=== PATIENT | female | born 2000 | race Caucasian/White ===

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

== ENCOUNTER 2024-02-11 17:46 | Emergency (ER) | payer OTHER ==
[2024-02-11 18:02] VITALS: BP 122/81; PULSE 89; RESP 18; TEMP 98.1; BMI 35.2
[2024-02-11 19:27] LABS: HCG,QUALITATIVE URINE Negative
[2024-02-11 19:39] LABS: EPI CELLS 15 /uL (0-25.1); HYALINE CASTS 0 /uL (0-3.1); PH,URINE 7.5 (5.0-8.0); URINE APPEARANCE CLEAR; URINE BACTERIA 352 /uL (0-1359); URINE BILIRUBIN NEGATIVE (NEGATIVE); URINE COLOR YELLOW; URINE GLUCOSE (UA) NEGATIVE (NEGATIVE); URINE KETONE NEGATIVE (NEGATIVE); URINE LEUK ESTERASE 2+ (NEGATIVE); URINE NITRITE NEGATIVE (NEGATIVE); URINE PROTEIN NEGATIVE (NEGATIVE); URINE RBC 28 /uL (0-23.9); URINE UROBILINOGEN 0.2 mg/dL (0.2-1.0); URINE WBC 18 /uL (0-25.8)
[2024-02-11] MEDS ORDERED: CYCLOBENZAPRINE HCL 10 MG TABLET (FP) ONE (19:51)
[2024-02-11] MEDS ORDERED: KETOROLAC TROMETHAMINE 30 MG/1 ML VIAL ONE (19:52)
[2024-02-11] MEDS: CYCLOBENZAPRINE HCL 10 MG TABLET (FP) PO ONE (20:03)
[2024-02-11] MEDS: KETOROLAC TROMETHAMINE 30 MG/1 ML VIAL IM ONE (20:03)
== END 2024-02-11 23:24 | disposition home or self-care (01) ==
LOC: JER 17:46
PROC: 3E0233Z Introduction of Anti-inflammatory into Muscle, Percutaneous Approach (ICD-10-PCS; principal; 2024-02-11)
DX: M54.41 Lumbago with sciatica, right side (principal); M54.42 Lumbago with sciatica, left side
CPT/HCPCS: 72131-TC; 81003; 84703; 87086; 93005; 93010; 99285-25

== ENCOUNTER 2024-07-14 10:12 | Emergency (ER) | payer OTHER ==
[2024-07-14 10:45] VITALS: BP 124/85; PULSE 78; RESP 17; TEMP 98.3; BMI 37.0
[2024-07-14] MEDS: ALBUTEROL SO4 2.5/IPRATROPIUM 0.5 INH SOL 3 ML VIAL.NEB. NEB SCH (11:17)
[2024-07-14] MEDS ORDERED: ALBUTEROL SO4 2.5/IPRATROPIUM 0.5 INH SOL 3 ML VIAL.NEB. NEB ONE (11:26)
[2024-07-14] MEDS: ALBUTEROL SO4 2.5/IPRATROPIUM 0.5 INH SOL 3 ML VIAL.NEB. NEB ONE (11:28)
[2024-07-14 11:40] LABS: BASO % 0.3 % (0-2.0); EOS % 0.4 % (0-4.5); HEMATOCRIT 43.5 % (32.4-45.2); HEMOGLOBIN 15.1 GM/dL (10.7-15.3); LYMPH % 5.9 % (8-40); MCH 28.7 pg (25.7-33.7); MCHC 34.8 g/dl (32.0-36.0); MEAN CELL VOLUME 82.5 fl (80-96); MEAN PLT VOLUME 7.1 fl (7.5-11.1); MONO % 1.3 % (3.8-10.2); NEUT % 92.1 % (42.8-82.8); PLATELET COUNT 440 10^3/uL (134-434); RBC 5.27 M/mm3 (3.60-5.2); RDW 13.1 % (11.6-15.6); WHITE BLOOD COUNT 12.5 K/mm3 (4.0-10.0)
[2024-07-14] MEDS ORDERED: KETOROLAC TROMETHAMINE 30 MG/1 ML VIAL ONE (12:01)
[2024-07-14] MEDS: KETOROLAC TROMETHAMINE 30 MG/1 ML VIAL IM ONE (12:04)
[2024-07-14 12:18] LABS: ANISOCYTOSIS 1+; MACROCYTOSIS 0
[2024-07-14 13:03] LABS: CHLORIDE 108 mmol/L (98-107); POTASSIUM 4.2 mmol/L (3.5-5.1); SODIUM 139 mmol/L (136-145)
[2024-07-14 13:05] LABS: CALCIUM 9.2 mg/dL (8.5-10.1)
[2024-07-14 13:06] LABS: ALBUMIN 3.6 g/dl (3.4-5.0); ANION GAP 7 mmol/L (4-13); BLOOD UREA NITROGEN 13.2 mg/dL (7-18); CO2 24 mmol/L (21-32); GLUCOSE,RANDOM 98 mg/dL (74-106)
[2024-07-14 13:09] LABS: CREATININE 0.6 mg/dL (0.55-1.3); SGOT/AST 14 U/L (15-37); SGPT/ALT 22 U/L (13-61)
[2024-07-14 13:10] LABS: BILIRUBIN,TOTAL 0.3 mg/dL (0.2-1)
[2024-07-14 13:12] LABS: ALK PHOS 82 U/L (45-117)
[2024-07-14] MEDS ORDERED: ACETAMINOPHEN 325 MG TABLET (FP) ONE (13:25)
[2024-07-14] MEDS: ACETAMINOPHEN 325 MG TABLET (FP) PO ONE (13:27)
[2024-07-14 15:00] LABS: HIV INTERPRETATION NEGATIVE (NEGATIVE)
== END 2024-07-14 14:08 | disposition home or self-care (01) ==
LOC: JER 10:12
PROC: 3E0133Z Introduction of Anti-inflammatory into Subcutaneous Tissue, Percutaneous Approach (ICD-10-PCS; principal; 2024-07-14)
PROC: 3E0F7GC Introduction of Other Therapeutic Substance into Respiratory Tract, Via Natural or Artificial Opening (ICD-10-PCS; 2024-07-14)
DX: R07.9 Chest pain, unspecified (principal); R05.9 Cough, unspecified; R51.9 Headache, unspecified; Z20.822 Contact with and (suspected) exposure to COVID-19
CPT/HCPCS: 0241U-QW; 36415; 71046-TC-FY; 80053; 82550; 84484; 84703; 85025; 86803; 87389; 93005; 93010; 99285-25